=== PATIENT | female | born 2000 | race Caucasian/White ===

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

== ENCOUNTER 2023-08-03 16:54 | Emergency (ER) | payer BC, SELFPAY ==
--- NOTE | 2023-08-03 16:58 | ED.EAR ---
HPI - Ear Problem General Chief complaint: Ear Stated complaint: Lt Ear Irritation Time Seen by Provider: 08/03/23 17:05 Source: patient and RN notes reviewed Mode of arrival: ambulatory Limitations: no limitations History of Present Illness HPI Narrative: 23-year-old female presents concern for left ear pain. She reports she has had nasal congestion and rhinorrhea for the last couple days. She denies drainage from the ear. Denies fever your MD Complaint: ear pain Related Data Home Medications Medication Instructions Recorded Confirmed hydroxyzine HCl 25 mg tablet 25 mg PO TID PRN Anxiety 02/07/21 08/03/23 lamotrigine 200 mg tablet See Rx Instructions PO DAILY 02/07/21 08/03/23 (Lamictal) trazodone 50 mg tablet 150 mg PO QHS 02/27/21 08/03/23 bupropion HCl 150 mg 24 hr tablet, 150 mg PO DAILY 08/03/23 08/03/23 extended release levonorgestrel 20.4 mcg/24 hr (up See Rx Instructions .Route .COMPLEX 08/03/23 08/03/23 to 8 yrs) 52 mg intrauterine device (Liletta) Allergies Allergy/AdvReac Type Severity Reaction Status Date / Time ibuprofen AdvReac Mild hives Verified 08/03/23 16:55 Review of Systems Review of Systems: CONSTITUTIONAL: Denies malaise, chills, sweats, or fever. EYES: Denies visual changes, redness, or discharge. ENT: Report rhinorrhea, congestion. Denies sinus pain, and sore throat. Reports left ear pain CARDIOVASCULAR: Denies chest pain, palpitations, or edema. RESPIRATORY: Denies cough. Denies dyspnea. GASTROINTESTINAL: Denies abdominal pain, nausea, vomiting, diarrhea SKIN: Denies rash or itching. MUSCULOSKELETAL: Denies myalgia. NEUROLOGIC: Denies headache. All systems reviewed & are unremarkable except as noted in HPI and below PMFSH Past Medical History Medical History Anxiety and depression Bipolar disorder Closed left fibular fracture History of inguinal hernia Lt. Spontaneous pneumothorax Surgical History Surgical History H/O left inguinal hernia repair Family History Family History Sibling Depression Social History Social History Smoking status: Former smoker Tobacco type: e-cigarettes/vaping Alcohol intake: never Substance use: never Substance use type: does not use Do You Feel Safe in your Home?: Yes Lack of Transportation: No Lack of Food: Never True Current Housing: I Have Housing Concerned About Future Housing: No Difficulty Paying Gas/Electric Bills: No Difficulty Paying for Meds: No Currently Unemployed: Decline to Answer Education: High School Diploma/GED Difficulty w/ Childcare or Family Care: No Living arrangements: with family Occupation/Education: student Gender identity (if verbalized by the patient): Female Comments At time of signature, agree with nursing past medical, surgical, social and family history. There is no relevant family history pertinent to the presenting complaint Exam Narrative: GENERAL: Well-appearing, well-nourished, and in no acute distress. HEAD: Normocephalic EYES: PERRLA, conjunctivae clear ENT: Nares clear, turbinates edematous, clear discharge. Mucous membranes moist. TM pearly potter with sharp light reflex bilaterally; left tragal tenderness with white mucousy discharge in the left EAC. Oropharynx not erythematous without lesions. Tonsils not enlarged and without exudate, no drooling, no hoarseness, no trismus, uvula midline. NECK: Supple. No lymphadenopathy CHEST: Clear to auscultation, breath sounds equal. No wheezing, rhonchi, rales, or stridor. No respiratory distress, speaks in full sentences. HEART: Regular rate and rhythm. No murmur heard. SKIN: Warm, dry, no rash. NEURO: Alert and oriented x3. PSYCH: Normal mood and affect Course Course [facility]ge
[2023-08-03 17:01] VITALS: BP 115/63; PULSE 77; RESP 16; TEMP 36.7; O2SAT 100
== END 2023-08-03 17:12 | disposition home or self-care (01) ==
PROVIDERS: Emergency Provider Nurse Practitioner; PCP Pediatrics
DX: H60.92 Unspecified otitis externa, left ear (principal); F31.9 Bipolar disorder, unspecified; F41.9 Anxiety disorder, unspecified
CPT/HCPCS: 99213; G0463

== ENCOUNTER 2023-11-25 08:09 | Emergency (ER) | payer MEDICARE, BC, SELFPAY ==
--- NOTE | 2023-11-25 08:30 | ED.EAR ---
HPI - Ear Problem General Chief complaint: Ear Stated complaint: Bilateral Ear Pain Time Seen by Provider: 11/25/23 08:30 Source: patient, RN notes reviewed and old records reviewed Mode of arrival: ambulatory Limitations: no limitations History of Present Illness HPI Narrative: Patient presents with complaints of 2-1/2 weeks of right ear pain, now has some left ear pain as well. She reports frequent swimmer's ear. She has been using leftover otic drops from a past infection, unfortunately these are . She denies any injury or trauma. no fever, chills, sweats. Denies nasal discharge. No other concerns or complaints today Related Data Home Medications Medication Instructions Recorded Confirmed hydroxyzine HCl 25 mg tablet 25 mg PO TID PRN Anxiety 02/07/21 11/25/23 lamotrigine 200 mg tablet See Rx Instructions PO DAILY 02/07/21 11/25/23 (Lamictal) trazodone 50 mg tablet 150 mg PO QHS 02/27/21 11/25/23 levonorgestrel 20.4 mcg/24 hr (up See Rx Instructions .Route .COMPLEX 08/03/23 11/25/23 to 8 yrs) 52 mg intrauterine device (Liletta) Allergies Allergy/AdvReac Type Severity Reaction Status Date / Time ibuprofen AdvReac Mild hives Verified 11/25/23 08:36 Review of Systems Review of Systems: All systems reviewed & are unremarkable except as noted in HPI and below Constitutional: Constitutional: Reports no additional constitutional complaints ENT: Reports system reviewed and no additional complaints, except as documented, Reports as per HPI and Reports otalgia Cardiovascular: Cardiovascular: Reports as per HPI and Reports no additional cardiovascular complaints Respiratory: Respiratory: Reports as per HPI and Reports no additional respiratory complaints Gastrointestinal: Gastrointestinal: Reports no additional gastrointestinal complaints [facility] Past Medical History Medical History Anxiety and depression Bipolar disorder Closed left fibular fracture History of inguinal hernia Lt. Spontaneous pneumothorax Surgical History Surgical History H/O left inguinal hernia repair Family History Family History Sibling Depression Social History Social History Smoking status: Former smoker Tobacco type: e-cigarettes/vaping Alcohol intake: never Substance use: never Substance use type: does not use Do You Feel Safe in your Home?: Yes Lack of Transportation: No Lack of Food: Never True Current Housing: I Have Housing Concerned About Future Housing: No Difficulty Paying Gas/Electric Bills: No Difficulty Paying for Meds: No Currently Unemployed: Decline to Answer Education: High School Diploma/GED Difficulty w/ Childcare or Family Care: No Living arrangements: with family Occupation/Education: student Gender identity (if verbalized by the patient): Female Exam Const: General: cooperative, no acute distress, alert and awake Orientation/consciousness: oriented to person, oriented to place and oriented to time HENMT: Head: normal to inspection Ears: TM's normal bilaterally and Abnormal EAC present erythema, EAC tenderness and otic discharge purulent Resp: Effort & Inspection: normal respiratory effort and able to speak in complete sentences Auscultation: clear to auscultation bilaterally, no crackles, no rales, no rhonchi and no wheezes Cardio: Palpation: normal PMI Rate: regular rate Rhythm: regular rhythm Heart sounds: S1 normal heart sound present and S2 normal heart sound present Neuro: General: oriented to person, oriented to place and oriented to time Cranial nerves: Yes CN's II-XII intact bilaterally Psych: Appearance: grossly normal Thought process: Normal thought process present Insight: Good insight present (Psych) Judgement: Luz
[2023-11-25 08:37] VITALS: BP 120/74; PULSE 99; RESP 16; TEMP 36.8; O2SAT 100
== END 2023-11-25 09:11 | disposition home or self-care (01) ==
PROVIDERS: Emergency Provider Nurse Practitioner Family
DX: H60.333 Swimmer's ear, bilateral (principal); F17.290 Nicotine dependence, other tobacco product, uncomplicated; Z79.899 Other long term (current) drug therapy
CPT/HCPCS: 99213; G0463

== ENCOUNTER 2024-04-12 11:19 | Outpatient (CLI) | payer BC, MEDICARE, SELFPAY ==
--- NOTE | ~2024-04-12 | US_ITS ---
EXAMINATION: US pelvic complete DATE: 04/12/2024 11:40 INDICATION: Pelvic pain TECHNIQUE: Multiple transabdominal and endovaginal sonographic images of the pelvis were obtained. COMPARISON: None. FINDINGS: The uterus measures 6.6 x 3.1 x 4.6 cm. Endometrial complex measures 3-4 mm in thickness. Linear echo genic and shadowing IUD in expected position within the endometrial canal. The right ovary measures 3 .8 x 2.1 x 2.7 cm. The left ovary measures 4.0 x 3.4 x 2.8 cm. 1.9 cm anechoic follicle in the left o vary. There is normal vascular flow in the ovaries. There is no free fluid in the pelvis. IMPRESSION: 1. IUD in expected position within the endometrial canal. Otherwise unremarkable pelvic ultrasound. Reviewed, dictated and finalized at location A. ALGEBRA TEACHER IMPRESSION: 1. IUD in expected position within the endometrial canal. Otherwise unremarkabl e pelvic ultrasound.
== END 2024-04-12 11:20 | disposition home or self-care (01) ==
LOC: MICIMG 11:20
PROVIDERS: PCP Nurse Practitioner; Visit Provider Nurse Practitioner
DX: R10.2 Pelvic and perineal pain (principal); Z97.5 Presence of (intrauterine) contraceptive device
CPT/HCPCS: 76856

== ENCOUNTER 2024-05-12 13:00 | Outpatient (CLI) | payer BC, MEDICARE, SELFPAY ==
--- OUTSIDE RECORDS SUMMARY | 2024-05-12 14:23 | XMS_ITS | Clinical Summary ---
Author Organization [facility] Address [address] [place] [address] Care Team Providers Care Topper Press Operator Name Role Phone Unavailable Primary Care Provider Unavailabl e Source Comments [facility],non-owned Affiliates and Associated Physician Practices is amultiple site organization consisting of ambulatory clinics and hospital sitesin [place], [place], [place] and [place]. This disclosure is being madepursuant to the Care Everywhere program and may not contain all information available regarding this patient. Last updated 17.[facility] Allergies Active Allergy Reactions Criticality Noted Date Comments Ibuprofen Urticaria Medium 11/10/2017 Medications * Be aware that medications may not be up to date on this document. Alwaysverify current medications with the patient. Medication Sig Dispensed Refills Start Date End Date Status hydrOXYzine hcl (ATARAX) 10 MG tabletIndications:Se dated State Take 1 tablet by mouth at bedtime Reasons: State of Being Sedated 30 tablet 3 11/11/2017 Active sertraline (ZOLOFT) 25 MG tabletIndications:An xiety Disorder,Panic Disorder,Social Anxiety Disorder Take 1 tablet by mouth once daily Reasons: Anxiety Disorder, Panic Disorder, Social Anxiety Disorder 30 tablet 3 11/12/2017 Active methylphenidate (RITALIN) 5 MG tabletIndications:At tention Deficit Disorder (Inactive) Take 1 tablet by mouth 2 times daily Reasons: Attention Deficit Disorder 60 tablet 11/12/2017 Active Active Problems Problem Noted Date Diagnosed Date Depression 11/09/2017 Social History Tobacco Use Types Packs/Day Years Used Date Smoking Tobacco: Never Smokeless Tobacco: Never Tobacco Cessation:Counseling Given: Yes Alcohol Use Standard Drinks/Week Comments No 0 (1 standard drink = 0.6 oz pur e alcohol) Sex and Gender Information Value Date Recorded Sex Assigned at Not on file Gender Identity Not on file Sexual Orientation Not on file Last Filed Vital Signs Vital Sign Reading Time Taken Comments Blood Pressure 116/75 11/13/2017 8:10 AM CDT Pulse 86 11/13/2017 8:10 AM CDT Temperature 36.4 C (97.6 F) 11/13/2017 8:10 AM CDT Respiratory Rate 18 11/13/2017 8:10 AM CDT Oxygen Saturation 98% 11/13/2017 8:10 AM CDT Inhaled Oxygen Concentration - - Weight 59 kg (130 lb) 11/11/2017 12:56 PM CDT Height 160.7 cm (5' 3.25 ) 11/09/2017 9:59 PM CD T Body Mass Index 22.85 11/09/2017 9:59 PM CDT Plan of Treatment Health Maintenance Due Date Last Done Comments PAP SMEAR 2001 HIV SCREENING 2016 HPV VACCINE (1 - 3-dose series) 2016 CHLAMYDIA/GONORRHEA SCREENING 2017 MENINGOCOCCAL (Group B) VACC INE SHARED DECISION-MAKING (1 of 2 - Standard) 2017 HEPATITIS C SCREENING 05/18/2019 DTAP/TDAP/TD VACCINES (1 - Tdap) 2020 HEPATITIS B VACCINE (1 of 3 - 19+ 3-dose series) 2020 COVID-19 VACCINE (1 - 2023-2 5 season) 2023 INFLUENZA VACCINE (#1) 2023 DEPRESSION SCREENING 03/03/2024 ZOSTER VACCINE (1 of 2) 05/23/2051 HIB VACCINE Aged Out No longer eligi ble based on patient's age to complete this topic MENINGOCOCCAL GROUPS A/C/Y/W VACCINE Aged Out No longer eligible b ased on patient's age to complete this topic PNEUMOCOCCAL VACCINE Aged Out No long er eligible based on patient's age to complete this topic Advance Directives * Full Code (Latest Code Status on File) Date Activated Date Inactivated Comments 11/09/2017 10:23 PM 11/13/2017 5:02 PM
--- OUTSIDE RECORDS SUMMARY | 2024-05-12 14:23 | XMS_ITS | Patient Health Summary ---
Author Organization [facility] Address [address] [place] [address] Care Team Providers Care [place] Alderman Name Role Phone Unavailable Primary Care Provider Unavailabl e Note from [facility],non-owned Affiliates and Associated Physician Practices is amultiple site organization consisting of ambulatory clinics and hospital sitesin [place], [place], [place] and [place]. This disclosure is being madepursuant to the Care Everywhere program and may not contain all information available regarding this patient. Last updated 17.[facility] Allergies * Ibuprofen(Urticaria) -Medium Criticality Medications * Be aware that medications may not be up to date on this document. Alwaysverify current medications with the patient. * hydrOXYzine hcl (ATARAX) 10 MG tablet(Started 11/11/2017) Take 1 tablet by mouth at bedtime Reasons: State of Being Sedated 3 refills remaining * sertraline (ZOLOFT) 25 MG tablet(Started 11/12/2017) Take 1 tablet by mouth once daily Reasons: Anxiety Disorder, Panic Disorder, Social Anxiety Disorder 3 refills remaining * methylphenidate (RITALIN) 5 MG tablet(Started 11/12/2017) Take 1 tablet by mouth 2 times daily Reasons: Attention Deficit Disorder Active Problems Problem Noted Date Diagnosed Date [...] Mass Index 22.85 11/09/2017 9:59 PM CDT Procedures * GROSS + MICRO EXAM(Performed 01/11/2008) Results * GROSS + MICRO EXAM (01/11/2008 12:30 PM PLATE GRAINER APPRENTICE) Result CASE NUMBER [id number] [facility] PATH REPORT Comment: ORDERING PHYSICIAN SHARYN OCONNOR SPECIMEN TYPE Hernia Sac-Left Inguinal CLINICAL HISTORY The patient is a 7-year-old girl with a left inguinal hernia who underwent excision of the same. GROSS DESCRIPTION The specimen labeled with the patient's name, Sarah Lugo, and left inguinal hernia sac is received fresh for gross and microscopic examination and consists of a 2.5 x 1.5 x 0.3 cm membranous portion of glistening, pink-delgado soft tissue submitted in toto as A . (CT/ld) MICROSCOPIC DESCRIPTION 1 H/E Sections of the left inguinal hernia sac show fibroconnective tissue partially lined by mesothelium. (CAV/ld) DIAGNOSIS DIAGNOSIS HERNIA SAC. This case has been personally reviewed and interpreted by the attending (teaching) pathologist. B2B Managed Service Sales Exec WALESKA HUNTER PATHOLOGIST Betsy Cook M.D. ELECTRONICALLY SHEA BETSY COOK MISCELLANEOUS SAMPLES / Unknown 01/11/2008 12:30 PM PLATE GRAINER APPRENTICE 01/11/2008 2:09 PM PLATE GRAINER APPRENTICE Historical Provider LAB - PATHOLOGY/C YTOLOGY ORDERABLES [facility] PATH REPORT
--- OUTSIDE RECORDS SUMMARY | 2024-05-12 14:23 | XMS_ITS | Continuity of Care Document ---
Author Organization [facility] Address [address] [place] [address] Phone Care Team Providers Care Industrial Economics Teacher Name Role Phone Mago Byers PA-C Unavailable Unavailable Allergies, Adverse Reactions, Alerts Substance Reaction Status Criticality ibuprofen Active No Information Medications Medication Instructions Dosage Effective Dates (start - stop) Status Comments No Drug Therapy Prescribed Advance Directives Directive Yes / No Effective Date File Name No Information Encounters Encounter Description Practice Location Reason(s) For Visit Diagnoses Date Provider Providers Copied on Encounter [facility], [address], [address], tel:[phone] fracture of left fibula with routine healing 8 Zeeshan Mercedes. [address], [place], [place], [id number] . tel: [phone] [facility], [address], [address], [place] tel:[phone] [facility] Stress fracture of left fibula with routine healing 8 Yvan Riley. [address], [place], [address]. tel: [phone] [facility], [address], [address], [place] tel:[phone] [facility] fracture of left fibula, initial encounter 8 Yvan Riley. [address], [place], [address]. tel: [phone] [facility], [address], [address], tel:[phone] [facility] Other fracture of upper and lower end of left fibula, subsequent encounter for closed fracture with routine healing May- 8 Yvan Riley. [address], [place], [address]. tel: [phone] [facility], [address] [place] [address], [address], [place] tel:[phone] [facility] Other fracture of upper and lower end of left fibula, subsequent encounter for closed fracture with routine healing May- 8 Yvan Osvaldo. [address], [place], [address]. tel: [phone] [facility], [address] [place] [address], [address], tel:[phone] [facility] Other closed fracture of proximal end of left fibula, initial encounter May-0 8 Yvan Osvaldo. [address], [place], [address]. tel: [phone] Family History Family Member Type Diagnosis Age At Onset No Information Payers Payer name Insurance type Covered republican ID Authoriza timirna(s[facility]/Non par OT [id number] Social History Type Description Quantity Date Captured Comments Sex Female Smoking Status No Information Chief Complaint And Reason For Visit No Information Reason For Referral Reason For Referral No Information Plan Of Treatment Date Type Action Status Referral Ordered: RADEX TIBFIB 2 VIEWS LT ordered History Of Present Illness Encounter Date Complaint History Of Prese nt Illness No Information Functional Status Date Functional Assessmen t No Information Medications Administered Medication Instructions Dosage Effective Dates (start - stop) Status Comments No Drug Therapy Prescribed Instructions Date Instruction Additional Infor mation No Information Assessments Type Assessment Date assessment Stress fracture of left fibula w ith routine healing Patient Care Teams Name Effective Dates (start - stop) Status Members No Information
--- OUTSIDE RECORDS SUMMARY | 2024-05-12 14:23 | XMS_ITS | Referral Summary ---
Author Organization [facility] Address [address] [place] [address] Care Team Providers Care Cdl Flatbed Truck Driver Name Role Phone Unavailable Primary Care Provider Unavailabl e Source Comments [facility],non-owned Affiliates and Associated Physician Practices is amultiple site organization consisting of ambulatory clinics and hospital sitesin [place], [place], [place] and [place]. This disclosure is being madepursuant to the Care Everywhere program and may not contain all informatio navailable regarding this patient. Last updated 17.[facility] Allergies Active Allergy Reactions Criticality Noted Date [...] Mass Index 22.85 11/09/2017 9:59 PM CDT Functional Status Functional Status Response Date of Assess ment Is person deaf or have serious hearing difficult y? No 11/13/2017 Is person blind or have serious difficulty seein g? No 11/13/2017 Does person have serious dif ficulty walking/climbing stairs? No 11/13/2017 Does person have difficulty dressing/bathing? No 11/13/2017 Does person have difficulty doing errands alone? No 11/13/2017 Cognitive Status Response Date of Assessm ent Does person have difficulty concentrating/remembering/making decisions? No 11/13/2017 Plan of Treatment Not on file Advance Directives * Full Code (Latest Code Status on File) Date Activated Date Inactivated Comments 11/09/2017 10:23 PM 11/13/2017 5:02 PM
--- OUTSIDE RECORDS SUMMARY | 2024-05-12 14:24 | XMS_ITS | Clinical Summary ---
Author Organization [facility] Address [address] [place] [address] Care Team Providers Care Flower Stripper Name Role Phone Beryl Ibarra MD Primary Care Provider Allergies Active Allergy Reactions Criticality Noted Date Comments Ibuprofen Hives High 11/10/2017 Reaction: Hives, Medications lamoTRIgine (LaMICtal) 200 mg tablet Take 225 mg by mouth nightly 0 Active medroxyPROGESTE Bryce 150 mg/mL injection Inject 150 mg into the muscle as instructed every 3 (three) months 02/06/2021 LASTLY 0 Active traZODone (DESYREL) 100 mg tablet Take 200 mg by mouth nightly 0 Active cariprazine (Vraylar) 3 mg capsule capsule Take 3 mg by mouth daily 1 Active hydrOXYzine (ATARAX) 25 mg tablet 3 (three) times a day as needed 1 Active naltrexone (DEPADE) 50 mg tablet 1 Active neomycin-polymy sunil-HC (CORTISPORIN) 3.5-10,000-1 mg/mL-unit/mL-% otic suspension 1 Active potassium chloride (KLOR-CON) 20 mEq packet PRESCRIBED ON 02/10/2021 - NOT YET PICKED UP 1 Active prazosin (MINIPRESS) 1 mg capsule 0 Active topiramate (TOPAMAX) 25 mg tablet 0 Active valACYclovir (VALTREX) 1 gram tablet TAKE 2 TABLETS BY MOUTH TWICE A DAY FOR 1 DAY 0 Active zolpidem (AMBIEN) 10 mg tablet 1 Active Active Problems Problem Noted Date Diagnosed Date Palpitations 02/12/2021 Tachycardia 02/12/2021 Hypomagnesemia 02/12/2021 Hypophosphatemia 02/12/2021 SIRS (systemic inflammatory response syndrome) 1 04/15/2020 Nicotine dependence 02/12/2021 Marijuana smoker 02/12/2021 Overweight (BMI 25.0-29.9) 02/12/2021 Intentional drug overdose 07/28/2019 Proteinuria 12/11/2017 Assessment & Plan (12/13/2017 10:47 AM CDT): Urine dipstick in ED with 3+ protein. UA obtained 11/09/17 also showed 3+ protein. Repeat UA showed trace protein. Protein/creatinine ratio 2.1 on 12/11 and down to 0.3 on 12/12. Likely orthostatic proteinuria. - stable Assessment & Plan (12/12/2017 7:38 PM CDT): Urine dipstick in ED with 3+ protein. UA obtained 11/09/17 also showed 3+ protein. Repeat UA negative. Protein/creatinine ratio 2.1 on 12/11 and down to 0.3 on 12/12. This could be due to orthostatic proteinuria - F/u Renal Assessment & Plan (12/11/2017 11:29 PM CDT): Urine dipstick in ED with 3+ protein. UA obtained 11/09/17 also showed 3+ protein. - Consider repeating UA - Consider obtaining protein/Cr ratio for further evaluation Anxiety with depression 11/09/2017 Accommodative component in esotropia 10/06/2012 Pneumomediastinum Precordial pain Resolved Problems Problem Noted Date Diagnosed Date Resolved Date Major depressive disorder 12/11/2017 Assessment & Plan (02/11/2019 1:26 PM SLEEVE MAKER): Patient is a 18 yo F who presents with symptoms consistent of major depressive disorder of low mood, hopelessness, guilt, poor energy, poor concentration, and SI with history of suicide attempts. There may also be a component of anxiety given patient's reports of persistent worry but difficult to fully piece out this appointment in the context of her depression. Also a concern is substance abuse with her Vyvanse and reports of her taking others prescriptions. This likely exacerbates her irritability. Also a consideration is a budding personality disorder given the extent of her mood swings. However, further longitudinal history will need to be obtained for further assessment of this. Assessment & Plan (12/13/2017 10:47 AM CDT): 17 y/o girl with depression, GRICEL and history of two previous suicide attempts in the last month admitted with passive suicidal ideation. She was recently inpatient for psychiatric treatment in early November, at which time she was initiated on Zoloft after having been on Lexapro. Zoloft was recently titrated up 2 weeks ago without any noticeable improvement in her symptoms. Sarah continues to want to and feels like her family would be better off without her. Parents also report worsening defiance and agitation at home. In the ED, psychiatry was consulted and feels that her symptoms warrant inpatient psychiatric admission. Parents are agreeable to the plan but would like Sarah to be placed somewhere that also offers Intensive Outpatient (IOP) so she could seamlessly transition from inpatient psychiatric treatment to outpatient. Prior to placement, will continue 1:1 observation as she is at risk for attempting suicide again. - Psychiatry following - pursue inpatient psychiatric placement - 1:1 sitter - Suicide precautions - Zoloft 100 mg daily - Will hold home Ritalin per Psychiatry recommendations Assessment & Plan (12/12/2017 4:51 PM CDT): 17 y/o girl with depression, GRICEL and history of two previous suicide attempts in the last month admitted with passive suicidal ideation. She was recently inpatient for psychiatric treatment in early November, at which time she was initiated on Zoloft after having been on Lexapro. Zoloft was recently titrated up 2 weeks ago without any noticeable improvement in her symptoms. Sarah continues to want to and feels like her family would be better off without her. Parents also report worsening defiance and agitation at home. In the ED, Psychiatry was consulted and feels that her symptoms warrant inpatient psychiatric admission. Parents are agreeable to the plan but would like Sarah to be placed somewhere that also offers Intensive Outpatient (IOP) so she could seamlessly transition from inpatient psychiatric treatment to outpatient. Prior to placement, will continue 1:1 observation as she is at risk for attempting suicide again. - Psychiatry following - Pursue inpatient psychiatric placement - 1:1 sitter - Suicide precautions - Zoloft increased to 100 mg daily (as per Psych rec) - Will hold home Ritalin per Psychiatry recommendations - Awaiting inpatient placement and if it doesn't work out then IOP per Psych rec on 12/12 Assessment & Plan (12/11/2017 11:20 PM CDT): 17 y/o girl with depression, GRICEL and history of two previous suicide attempts in the last month admitted with passive suicidal ideation. She was recently inpatient for psychiatric treatment in early November, at which time she was initiated on Zoloft after having been on Lexapro. Zoloft was recently titrated up 2 weeks ago without any noticeable improvement in her symptoms. Sarah continues to want to and feels like her family would be better off without her. Parents also report worsening defiance and agitation at home. In the ED, Psychiatry was consulted and feels that her symptoms warrant inpatient psychiatric admission. Parents are agreeable to the plan but would like Sarah to be placed somewhere that also offers Intensive Outpatient (IOP) so she could seamlessly transition from inpatient psychiatric treatment to outpatient. Prior to placement, will continue 1:1 observation as she is at risk for attempting suicide again. - Psychiatry following - Pursue inpatient psychiatric placement - 1:1 sitter - Suicide precautions - Continue home Zoloft, 50 mg daily - Will hold home Ritalin per Psychiatry recommendations Suicide and self-inflicted injury 11/09/2017 08/24/2018 Assessment & Plan (11/09/2017 5:55 PM CDT): Sarah is a 17 yo with history of anxiety and depression, medication compliant presenting with suicidal attempt. She denies current SI/HI but admits she wanted to kill herself when she slit her wrist. She follows regularly with Dr. Lindsey and was last seen this past 11/06. Given parents concern for patient's safety and patient's preference to be admitted to for further management. Psychiatry consulted; awaiting inpatient psychiatry. -1:1 sitter -suicide precautions -regular diet -f/u SW -f/u psychiatry c/s Depression 11/09/2017 08/24/2018 Assessment & Plan (11/09/2017 1:33 PM CDT): History of depression -continue lexapro -continue prozac Generalized anxiety disorder with panic attacks 10/23/2017 08/24/2018 Episode of recurrent major d epressive disorder 10/23/2017 02/11/2019 Assessment & Plan (08/24/2018 11:37 AM CDT): Dx: MDD, GRICEL Overall course most consistent with generalized anxiety and depressive symptoms which remained untreated for several years. Her treatment course appears more dramatic than would be expected for her symptoms; she has been unable to return to school and has instead been in various IOPs or boarding programs for the past year. Patient herself has noticed that she seems much higher functioning than her peers in these programs. This may be partly due to perfectionist attitudes of both patient and family. Currently she is doing well and family wishes to continue following with Dr. Manning at [facility]; this visit was made several months ago when they didn't have a psychiatrist but they thought they should keep it. -recommended continued followup with Dr. Manning. Will not schedule return visit at this time, but instructed family that if they wish to transfer care they are welcome to return -reviewed medication list and genetic screening with family. This will ultimately be the decision of Dr. Manning, but our recommendation was that Abilify be switched to an SNRI -continue Abilify 5mg and Lamictal 200mg, prescribed by Dr. Manning -provided supportive psychotherapy and focused on importance of returning to school. If they return would need to spend more time focusing on parent-child dynamic and expectations of care. Immunizations Immunization Administration Dates Next Due Influenza, Quadrivalent, Spl it, Preservative Free, Intramuscular 03/31/2019,12/13/2017 Surgical History Surgery Date Site/Laterality Comments HERNIA REPAIR Medical History Medical History Date Comments Anxiety and depression SVT (supraventricular tachycardia) Hypokalemia Tachycardia Borderline personality disorder (HCC) Family History Medical History Relation Name Comments Anxiety disorder Brother Suicide Completion Cousin Relation Name Status Comments Brother Alive Cousin Dad's first cou sin Father Alive Mother Alive Social History Tobacco Use Types Packs/Day Years Used Date Smoking Tobacco: Every Day Vaping Smokeless Tobacco: Never Comments:does it daily Alcohol Use Standard Drinks/Week Comments No 0 (1 standard drink = 0.6 oz pur e alcohol) Personal Safety Answer Date Recorded Getting School Help Needed Not on file 04/28 Comments No Sex and Gender Information Value Date Recorded Sex Assigned at Not on file Legal Sex Female 5:40 AM SLEEVE MAKER Gender Identity Female 02/14/2021 7:19 AM SLEEVE MAKER Sexual Orientation Not on file Obstetrics History Last Filed Vital Signs Vital Sign Reading Time Taken Comments Blood Pressure 104/68 02/12/2021 11:00 AM SLEEVE MAKER Pulse 101 02/12/2021 11:00 AM SLEEVE MAKER Temperature 36.8 C (98.2 F) 02/12/2021 11:00 AM SLEEVE MAKER Respiratory Rate 20 02/12/2021 11:00 AM SLEEVE MAKER Oxygen Saturation 98% 02/12/2021 11:00 AM SLEEVE MAKER Inhaled Oxygen Concentration - - Weight 72 kg (158 lb 11.7 oz) 02/11/2021 9:44 PM SLEEVE MAKER Height 160 cm (5' 3 ) 02/11/2021 9:50 PM SLEEVE MAKER Body Mass Index 28.12 02/11/2021 9:44 PM SLEEVE MAKER Plan of Treatment Not on file Insurance [facility] BLUE ACCESS CHOICE [place] BLUE ACCESS CHOICE [place] Advance Directives For more information, please contact: [phone] * Full Code (Latest Code Status on File) Date Activated Date Inactivated Comments 02/12/2021 2:04 AM 02/12/2021 6:19 PM * Full Code Date Activated Date Inactivated Comments 07/28/2019 5:40 AM 07/31/2019 7:44 PM * Full Code Date Activated Date Inactivated Comments 03/29/2019 9:07 PM 04/02/2019 9:52 PM * Full Code Date Activated Date Inactivated Comments 12/11/2017 10:32 PM 12/13/2017 3:33 PM Care Teams Flower Stripper Relationship Specialty Start Date End Date Beryl Ibarra MD [address] [place] [address] PCP - General Pediatrics 07/30/17
--- OUTSIDE RECORDS SUMMARY | 2024-05-12 14:24 | XMS_ITS | Referral Summary ---
Author Organization [facility] Address [address] [place] [address] Care Team Providers Care Procedures Tech Name Role Phone Beryl Ibarra MD Primary Care Provider [phone] Allergies Active Allergy Reactions Criticality Noted Date [...] 12/11/2017 Assessment & Plan (02/11/2019 1:26 PM BANK CASHIER): Patient is a 18 yo F who [...] Quadrivalent, Spl it, Preservative Free, Intramuscular 03/31/2019,12/13/2017 Social History Tobacco Use Types Packs/Day Years [...] on file Legal Sex Female 5:40 AM BANK CASHIER Gender Identity Female 02/14/2021 7:19 AM BANK CASHIER Sexual Orientation Not on file Last Filed Vital Signs Vital Sign Reading Time Taken Comments Blood Pressure 104/68 02/12/2021 11:00 AM BANK CASHIER Pulse 101 02/12/2021 11:00 AM BANK CASHIER Temperature 36.8 C (98.2 F) 02/12/2021 11:00 AM BANK CASHIER Respiratory Rate 20 02/12/2021 11:00 AM BANK CASHIER Oxygen Saturation 98% 02/12/2021 11:00 AM BANK CASHIER Inhaled Oxygen Concentration - - Weight 72 kg (158 lb 11.7 oz) 02/11/2021 9:44 PM BANK CASHIER Height 160 cm (5' 3 ) 02/11/2021 9:50 PM BANK CASHIER Body Mass Index 28.12 02/11/2021 9:44 PM BANK CASHIER Plan of Treatment Not on file [place] [address] [facility] [place] Advance Directives For more information, please contact: [phone] * Full Code (Latest Code Status on File) Date Activated Date Inactivated Comments 02/12/2021 2:04 AM 02/12/2021 6:19 PM * Full Code Date Activated Date Inactivated Comments 07/28/2019 5:40 AM 07/31/2019 7:44 PM * Full Code Date Activated Date Inactivated Comments 03/29/2019 9:07 PM 04/02/2019 9:52 PM * Full Code Date Activated Date Inactivated Comments 12/11/2017 10:32 PM 12/13/2017 3:33 PM Care Teams Procedures Tech Relationship Specialty Start Date End Date Beryl Ibarra MD [address] [place] [address] PCP - General Pediatrics 07/30/17
--- OUTSIDE RECORDS SUMMARY | 2024-05-12 14:24 | XMS_ITS | Clinical Summary ---
Author Organization [facility] Address [address] [place] [address] Care Team Providers Care Warp Coiler Name Role Phone Beryl Ibarra MD Primary Care Provider [phone] Allergies Active Allergy Reactions Criticality Noted Date Comments Ibuprofen Hives 10/11/2017 Medications hydrOXYzine 25 MG tablet Take 25 mg by mouth 3 (three) times daily as needed for Anxiety. Active zolpidem 10 MG tablet Take 10 mg by mouth nightly as needed for Sleep. Active lamoTRIgine 100 MG tablet Take 225 mg by mouth every evening. Active Cariprazine HCl (VRAYLAR) 3 MG Cap Take 3 mg by mouth daily. Active Active Problems Problem Noted Date Diagnosed Date Acetaminophen overdose 01/30/2021 Social History Tobacco Use Types Packs/Day Years Used Date Smoking Tobacco: Never Smokeless Tobacco: Never Alcohol Use Standard Drinks/Week Comments Yes 0 (1 standard drink = 0.6 oz pure alcohol) Pt states i drank alot last night, i was messed up Comments No Sex and Gender Information Value Date Recorded Sex Assigned at Not on file Legal Sex Female 7:22 PM CDT Gender Identity Not on file Sexual Orientation Not on file Last Filed Vital Signs Vital Sign Reading Time Taken Comments Blood Pressure 107/68 02/11/2021 12:00 AM HEAT TREAT SUPERVISOR Pulse 98 02/11/2021 12:00 AM HEAT TREAT SUPERVISOR Temperature 36.5 C (97.7 F) 02/10/2021 10:16 PM HEAT TREAT SUPERVISOR Respiratory Rate 20 02/11/2021 12:00 AM HEAT TREAT SUPERVISOR Oxygen Saturation 98% 02/11/2021 12:00 AM HEAT TREAT SUPERVISOR Inhaled Oxygen Concentration - - Weight 65.8 kg (145 lb) 02/10/2021 10:16 PM HEAT TREAT SUPERVISOR Height 160 cm (5' 3 ) 02/10/2021 10:16 PM HEAT TREAT SUPERVISOR Body Mass Index 25.69 02/10/2021 10:16 PM HEAT TREAT SUPERVISOR Plan of Treatment Health Maintenance Due Date Last Done Comments Cervical Cancer Screening Pap Smear (Age 21 to 29) Every 3 Years 2001 Cervical Cancer Screening 2001 Annual Physical 2004 Meningococcal B Vaccine (1 of 2 - Standard) 2017 HPV Vaccines (3 - 3-dose series) 12/18/2017 09/25/2017, 08/15/2016 Hepatitis C 05/23/2019 COVID-19 Vaccine ( season) 2023 09/05/2020, 08/12/2020 Influenza Adult (#1) 2023 12/25/2019, 12/02/2019, 01/30/2016, Additional history exists DTaP, Tdap and Td Vaccines (8 - Td or Tdap) 09/26/2027 09/25/2017, 09/07/2012, 07/31/2006, Additional history exists Hepatitis B Vaccines Completed 09/29/2002, 2001, 2001, Additional history exists Pneumococcal Vaccine: Pediatrics (0 to 5 Years) and At-Risk Patients (6 to 64 Years) Completed 09/29/2002, 06/07/2002, 2001, Additional history exists Meningococcal Vaccine Completed 09/25/2017, 013 RSV Immunizations Under 20 Months Aged Out No longer eligible based on patient's age to complete this topic Goals Goal Patient Goal Type Associated Problems Recent Progress Patient-Stated? Author Improve Home Support System General No Nickie Oliveira, GEOTHERMAL ELECTRICAL ENGINEER Note: Patient will participate in plans for voluntary inpatient psychiatric admission. [place] [address] [facility] [place] [address] [facility] Advance Directives * Full Code (Latest Code Status on File) Date Activated Date Inactivated Comments 01/30/2021 1:11 PM 02/01/2021 7:07 PM Care Teams Warp Coiler Relationship Specialty Start Date End Date Beryl Ibarra MD [address] [place] [address] PCP - General PEDIATRICS 01/12/18
--- OUTSIDE RECORDS SUMMARY | 2024-05-12 14:24 | XMS_ITS | Clinical Summary ---
Author Organization [facility] Address [address] [place] [address] Care Team Providers Care Stem Processing Machine Operator Name Role Phone Unavailable Primary Care Provider Unavailabl e Medications No known medications Active Problems No known active problems Social History Tobacco Use Types Packs/Day Years Used Date Smoking Tobacco: Never Assessed Comments Unknown Sex and Gender Information Value Date Recorded Sex Assigned at Not on file Legal Sex Female 6:13 AM PDT Gender Identity Not on file Sexual Orientation Not on file Last Filed Vital Signs Vital Sign Reading Time Taken Comments Blood Pressure 123/73 11/01/2022 8:23 AM CDT Pulse 92 11/01/2022 8:23 AM CDT Temperature - - Respiratory Rate - - Oxygen Saturation - - Inhaled Oxygen Concentration - - Weight - - Height - - Body Mass Index - - Plan of Treatment Health Maintenance Due Date Last Done Comments Dental Prophylaxis 2001 Dental X-Ray: Full Mouth 2001 Meningococcal B Vaccine (1 of 2 - Standard) 2017 Dental Oral Exam 05/03/2023 11/01/2022 Dental X-Ray: Bitewings 05/03/2023 11/01/2022 Dental X-Ray: Panoramic 06/12/2025 06/11/2022 Procedures Procedure Name Priority Date/Time Associated Diagnosis Comments COMPREHENSIVE ORAL EVALUATION - NEW OR ESTABLISHED PATIENT Routine 11/01/2022 8:15 AM CDT PANORAMIC RADIOGRAPHIC IMAGE Routine 06/11/2022 9:00 AM CDT from Last 3 Months or Most Recently Relevant to Health Maintenance Insurance [facility] PPO
--- OUTSIDE RECORDS SUMMARY | 2024-05-12 14:24 | XMS_ITS | Encounter Summary ---
Author Organization [facility] [place] [address] [place] [address] Care Team Providers Care Nursing Admin Name Role Phone Unavailable Primary Care Provider Unavailabl e Prior Encounters Date Type Department Care Team Description 11/08/2022 8:15 AM CDT Office Visit [facility] [address] [place] [address] Bhavna Solis, DDS 11/01/2022 8:15 AM CDT Office Visit [facility] [address] [place] [address] Bhavna Solis, DDS 06/11/2022 9:00 AM CDT Office Visit [facility] [address] [place] [address] Wen Bonds, DDRaj Last Filed Vital Signs Vital Sign Reading Time Taken Comments Blood Pressure 123/73 11/01/2022 8:23 AM CDT Pulse 92 11/01/2022 8:23 AM CDT Temperature - - Respiratory Rate - - Oxygen Saturation - - Inhaled Oxygen Concentration - - Weight - - Height - - Body Mass Index - - Plan of Treatment Not on file Procedures Procedure Name Priority Date/Time Associated Diagnosis Comments TOPICAL APPLICATION OF FLUORIDE VARNISH Routine 11/08/2022 8:15 AM CDT GLADYS DECON Routine 11/08/2022 8:15 AM CDT SCALING IN PRESENCE OF GENERALIZED MODERATE OR SEVERE GINGIVAL INFLAMMATION Routine 11/08/2022 8:15 AM CDT LR ANTIBACT IRR/QUAD Routine 11/08/2022 8:15 AM CDT LL ANTIBACT IRR/QUAD Routine 11/08/2022 8:15 AM CDT UL ANTIBACT IRR/QUAD Routine 11/08/2022 8:15 AM CDT UR ANTIBACT IRR/QUAD Routine 11/08/2022 8:15 AM CDT INTRAORAL PHOTO Routine 11/01/2022 8:15 AM CDT INTRAORAL PHOTO Routine 11/01/2022 8:15 AM CDT INTRAORAL PHOTO Routine 11/01/2022 8:15 AM CDT INTRAORAL PHOTO Routine 11/01/2022 8:15 AM CDT BITEWINGS - FOUR RADIOGRAPHIC IMAGES Routine 11/01/2022 8:15 AM CDT ADDITIONAL X-RAY Routine 11/01/2022 8:15 AM CDT ADDITIONAL X-RAY Routine 11/01/2022 8:15 AM CDT ADDITIONAL X-RAY Routine 11/01/2022 8:15 AM CDT ADDITIONAL X-RAY Routine 11/01/2022 8:15 AM CDT ADDITIONAL X-RAY Routine 11/01/2022 8:15 AM CDT SINGLE X-RAY Routine 11/01/2022 8:15 AM CDT COMPREHENSIVE ORAL EVALUATION - NEW OR ESTABLISHED PATIENT Routine 11/01/2022 8:15 AM CDT PANORAMIC RADIOGRAPHIC IMAGE Routine 06/11/2022 9:00 AM CDT LIMITED ORAL EVALUATION - PROBLEM FOCUSED Routine 06/11/2022 9:00 AM CDT Visit Diagnoses Not on file Insurance [facility] PPO
== END 2024-05-12 13:01 | disposition home or self-care (01) ==
LOC: ANHLAB 13:01
PROVIDERS: PCP Nurse Practitioner Family; Visit Provider Nurse Practitioner Family
DX: R19.7 Diarrhea, unspecified (principal); R10.9 Unspecified abdominal pain
CPT/HCPCS: 83993

== ENCOUNTER 2024-10-01 09:00 | Outpatient (RCR) | payer BC, MEDICARE, MEDICAID, SELFPAY ==
--- NOTE | 2024-08-13 11:49 | OPREHPOC ---
Outpatient Therapy Plan of Care This is a Multidisciplinary Plan of Care that may contain components documented by all disciplines (PT, OT, and ST.) PT Problem 1 PT Problem #1 Knowledge Deficit PT Goal 1 Goal / Goal Update 1. Patient will perform independent HEP Target Visit 2 PT Problem 2 PT Problem #2 Pain PT Goal 1 Goal / Goal Update 1. No pain with palpation of pelvic floor to allow for pap smears etc. 2. Pain will not limit daily activities for at least 2 weeks 3. Patient will demonstrate normal pelvic floor muscle tone Target Visit 6 PT Problem 3 PT Problem #3 Impaired Strength PT Goal 1 Goal / Goal Update 1. Hip strength 5/5 omid in all planes Target Visit 6
--- NOTE | 2024-08-13 11:49 | PTOPEVAL1 ---
Assessment and note entered by Bibiana Saini DPT Evaluation Information Assessment Status Evaluation ICD-10 Condition Codes (PT) Weakness R53.1,Pelvic and perineal pain R10.2 Subjective Information Pt reports pelvic pain since the beginning of this year. With last pelvic exam she had a significant amount of pain and she also reports she will get abdominal cramping. Has been prescribed vaginal valium but states that has not helped. History of very painful periods. Pain seems to be worse at the end of the day and when she has the cramping she has to rest and cannot do typical activities. Vaginal ultrasound about 2 months ago but did not find anything. Voids 3-4 times a day and 0 at night. Denies pain or difficulty. Can hold urge to void 30-60 minutes. Denies urinary incontinence. BM 2-3 times a day but reports frequent diarrhea that seems to be in sync with the cramping she gets. Previous pelvic pain with sexual activity almost all of the time. Pt has never been . Pt states she has been diagnosed with IBS. Patient goal: decrease pain, be able to return to exercise without pain. No return to MD scheduled soon. Reported Pain Level Pain Score 0: Self Report Assessment PT Clinical Summary The patient is presenting to skilled therapy with a history of progressing pelvic pain since March . She demonstrates moderately increased pelvic floor muscle tone and pain with palpation, difficulty relaxing after contraction, and decreased abdominal and hip strength. These impairments are contributing to her pain and difficulty with typical activities. She will highly benefit from therapy to address impairments in order to reduce pain and return to full function. Plan of Care Interventions Electrical Stimulation,Gait Training,Manual Therapy,Neuro Re-education,Patient/Caregiver Education,Therapeutic Activities,Therapeutic Exercise PT Services Indicated Yes Treatment Frequency and 1 time a week for 6 visits Duration These treatments will address the objective and functional deficits as defined above. The patient will be advanced safely and appropriately in order for the patient to progress towards his/her prior level of function. Additional exercises will be introduced and as well as a comprehensive home exercise program upon discharge, if needed, ?to ensure carryover of functional gains achieved in the clinic. This treatment plan has been reviewed and agreement upon by the patient.
--- NOTE | 2024-10-01 09:32 | OPREHPOC ---
Outpatient Therapy Plan of Care This is a Multidisciplinary Plan of Care that may contain components documented by all disciplines (PT, OT, and ST.) PT Problem 1 PT Problem #1 Knowledge Deficit PT Goal 1 Goal / Goal Update 1. Patient will perform independent HEP Target Visit 2 Progress Met PT Problem 2 PT Problem #2 Pain PT Goal 1 Goal / Goal Update 1. No pain with palpation of pelvic floor to allow for pap smears etc. 2. Pain will not limit daily activities for at least 2 weeks 3. Patient will demonstrate normal pelvic floor muscle tone update 10/01/24 1. met 2. met 3. improved to mild Target Visit 6 PT Problem 3 PT Problem #3 Impaired Strength PT Goal 1 Goal / Goal Update 1. Hip strength 5/5 omid in all planes update 10/01/24 1. 4+/5 in all planes Target Visit 6 Progress Partially Met
--- NOTE | 2024-10-01 09:32 | PTOPDC ---
Assessment and note entered by Bibiana Saini DPT Evaluation Information Assessment Status Discharge ICD-10 Condition Codes (PT) Weakness R53.1,Pelvic and perineal pain R10.2 Subjective Information Pt reports no pelvic pain currently. Highest pain recently 0/10 and no functional limitations. Voiding 5 times a day. Reported Pain Level Pain Score 0: Self Report Assessment PT Clinical Summary The patient has made excellent progress and reports no pain for more than 1 week. She reports no functional limitations at this time. She demonstrates improved hip and abdominal strength, as well as no tenderness with abdominal or pelvic floor palpation and improved pelvic floor muscle tone. Due to her progress, plan for discharge this date. She has been educated to continue HEP and follow up with MD and/or PT as needed. Plan of Care PT Services Indicated No
== END 2024-10-01 13:26 | disposition home or self-care (01) ==
LOC: ANHPT 09:00
PROVIDERS: PCP Obstetrics & Gynecology Gynecology; Visit Provider Obstetrics & Gynecology Gynecology
DX: R10.2 Pelvic and perineal pain (principal)
CPT/HCPCS: 97110; 97112; 97140; 97161; 97530